=== PATIENT | male | born 1980 | race African-American/Black ===

== ENCOUNTER 2021-01-24 18:33 | Emergency (ER) | payer OTHER ==
[~2021-01-24] VITALS: Ht 180.3 cm; Wt 88.6 kg
[2021-01-24 20:30] VITALS: BP 129/74
== END 2021-01-24 21:42 | disposition home or self-care (01) ==
LOC: EMS 18:35
DX: S01.512A Laceration without foreign body of oral cavity, initial encounter (principal); W19.XXXA Unspecified fall, initial encounter; Y93.89 Activity, other specified; Y92.89 Other specified places as the place of occurrence of the external cause; Y99.8 Other external cause status
CPT/HCPCS: 99283; Z7502